=== PATIENT | female | born 1975 | race Caucasian/White ===

== ENCOUNTER → 2018-04-03 15:31 | Outpatient (CLI) | payer OTHER, SELFPAY ==
[2018-04-03 17:45] LABS: Hematocrit 38.2 % (37-47); Hemoglobin 13.1 g/dl (12.0-15.0); Mean Corp Hgb Conc 34.3 g/gl (32-36); Mean Corpuscular Volume 87.4 fL (81-99); Mean Platelet Vol. 9.3 fl (6.2-12.0); Platelet Count 321 K/mm3 (150-450); RBC Distribution Width CV 12.4 % (11.6-14.6); RBC Distribution Width SD 38.8 fl (35.1-43.9); Red Blood Count 4.37 M/mm3 (4.2-5.4); White Blood Count 6.1 K/mm3 (4.4-11.0)
[2018-04-03 18:07] LABS: ALB/GLOB Ratio 1.1 RATIO (0.9-2.4); AST(SGOT) 12 U/L (15-37); Alanine Aminotransfer ALT/SGPT 17 U/L (13-56); Albumin, Serum 3.8 g/dL (3.2-5.0); Alkaline Phosphatase 52 U/L (45-117); Anion Gap 7 (5-15); BUN 15 mg/dL (7-18); BUN/Creat Ratio 24.4 RATIO (10-20); Calcium,Total 8.7 mg/dL (8.5-10.1); Chloride 106 mmol/L (98-107); Creatinine, Serum 0.62 mg/dL (0.55-1.02); EST Glomerular Filtration Rate 113 mL/min (>60); Est Glom Filt Rate - Afr Amer 137 mL/min (>60); Globulin 3.6 g/dL (2.2-4.2); Glucose 90 mg/dL (74-106); Iron 97 ug/dL (50-170); Potassium 3.7 mmol/L (3.5-5.1); Protein, Total 7.4 g/dL (6.4-8.2); Scan Indicated on CBC? Y/N NO; Sodium Level 139 mmol/L (136-145); Thyroid Stim Hormone (TSH) 1.33 uIU/mL (0.358-3.74)
[2018-04-03 18:16] LABS: Erythrocyte Sedimentation Rate 4 mm/hr (0-20)
[2018-04-04 11:32] LABS: Vitamin B12 552 pg/mL (211-911); Vitamin D,25 Hydroxy 26.4 ng/mL (29.95-100.01)
== END ==
PROVIDERS: Family Provider Family Medicine; PCP Family Medicine; Visit Provider Family Medicine
DX: R53.83 Other fatigue (principal)
CPT/HCPCS: 36415; 80053; 82306; 82533; 82607; 83540; 84443; 85027; 85652

== ENCOUNTER → 2019-06-18 16:26 | Outpatient (CLI) | payer OTHER, SELFPAY ==
[2015-02-25 14:11] VITALS: BMI 22.2
--- NOTE | 2019-06-18 16:31 | RAD_ITS ---
STUDY: X-RAY - CERVICAL SPINE REASON FOR EXAM: Female, 43 years old. NECK PAIN AND CHRONIC headaches TECHNIQUE: 5 view(s) of the cervical spine were obtained. COMPARISON: None FINDINGS: Normal anterior atlantoaxial articulation. Normal odontoid process. Normal cervical lordosis. Normal vertebral bodies and endplates. Normal disc space heights. Normal visualized intervertebral neuroforamina. The soft tissue structures are unremarkable. There is no demonstrated fracture of the cervical spine. RAD/Cerv Spine 4 or 5 Views IMPRESSION: Normal x-ray examination of the visualized cervical spine. Electronically Signed: Ja Leyva MD at 23:57 EST , Service support ,
[2019-06-18 18:08] LABS: Hematocrit 39.2 % (37-47); Hemoglobin 13.5 g/dL (12.0-15.0); Mean Corp Hgb Conc 34.4 g/dL (32-36); Mean Corpuscular Hgb 29.9 pg (27.0-32.0); Mean Corpuscular Volume 86.9 fL (81-99); Mean Platelet Vol. 9.1 fl (6.2-12.0); Platelet Count 311 K/mm3 (150-450); RBC Distribution Width CV 12.2 % (11.6-14.6); RBC Distribution Width SD 38.9 fl (35.1-43.9); Red Blood Count 4.51 M/mm3 (4.2-5.4); White Blood Count 5.8 K/mm3 (4.4-11.0)
[2019-06-18 18:14] LABS: Erythrocyte Sedimentation Rate 4 mm/hr (0-20)
[2019-06-18 18:24] LABS: Vitamin D,25 Hydroxy 41.2 ng/mL (29.95-100.01)
[2019-06-18 19:14] LABS: ALB/GLOB Ratio 1.1 RATIO (0.9-2.4); AST(SGOT) 11 U/L (15-37); Alanine Aminotransfer ALT/SGPT 18 U/L (13-56); Albumin, Serum 3.7 g/dL (3.2-5.0); Alkaline Phosphatase 55 U/L (45-117); Anion Gap 3 (5-15); BUN 15 mg/dL (7-18); BUN/Creat Ratio 23.1 RATIO (10-20); CRP < 2.90 mg/L (0.0-3.0); Calcium,Total 9.1 mg/dL (8.5-10.1); Chloride 107 mmol/L (98-107); Creatinine, Serum 0.65 mg/dL (0.55-1.02); EST Glomerular Filtration Rate 105 mL/min (>60); Est Glom Filt Rate - Afr Amer 128 mL/min (>60); Free T3 2.6 pg/mL (2.18-3.98); Globulin 3.5 g/dL (2.2-4.2); Glucose 99 mg/dL (74-106); Magnesium 2.2 mg/dL (1.6-2.6); Potassium 3.7 mmol/L (3.5-5.1); Protein, Total 7.2 g/dL (6.4-8.2); Sodium Level 138 mmol/L (136-145); T4 Free Direct 0.86 ng/dL (0.76-1.46); Thyroid Stim Hormone (TSH) 1.44 uIU/mL (0.358-3.74)
[2019-06-20 13:52] LABS: ANTINUCLEAR ANTIBODIES DIRECT Negative (Negative)
[2019-06-27 17:04] LABS: CCP IgG Antibodies 9 units (0-19); Thyroid Peroxidase AB 10 IU/mL (0-34)
== END ==
PROVIDERS: Family Provider Family Medicine; PCP Family Medicine; Referring Provider Family Medicine; Visit Provider Family Medicine
DX: E55.9 Vitamin D deficiency, unspecified (principal); R25.2 Cramp and spasm; R53.83 Other fatigue; R51 Headache
CPT/HCPCS: 36415; 72050; 80053; 81291; 82306; 83735; 84439; 84443; 84481; 85027; 85652; 86038; 86140; 86200; 86376; 86431

== ENCOUNTER → 2019-07-01 13:38 | Outpatient (CLI) | payer OTHER, SELFPAY ==
[2019-07-01 15:26] LABS: Vitamin B12 614 pg/mL (211-911); Vitamin D,25 Hydroxy 36.5 ng/mL (29.95-100.01)
[2019-07-04 03:59] LABS: CCP IgG Antibodies 8 units (0-19); Thyroid Peroxidase AB 10 IU/mL (0-34)
== END ==
PROVIDERS: PCP Family Medicine; Referring Provider Family Medicine; Visit Provider Family Medicine
DX: E55.9 Vitamin D deficiency, unspecified (principal); R53.83 Other fatigue
CPT/HCPCS: 36415; 82306; 82607; 82746; 86200; 86376

== ENCOUNTER → 2019-07-29 13:06 | Outpatient (CLI) | payer OTHER, SELFPAY ==
--- NOTE | 2019-07-29 14:10 | CT_ITS ---
STUDY: CT BRAIN WITHOUT CONTRAST REASON FOR EXAM: Female, 43 years old. HEADACHES RADIATION DOSAGE (If Supplied By Facility): CTDIvol = ( 60.81 ) mGy, DLP = ( 1021.47 ) mGycm CLINICAL HISTORY: 43 years Female, HEADACHES COMPARISON: None. TECHNIQUE: A CT scan of the head was performed without IV contrast in the axial plane. Coronal and sagittal reconstruction images were also obtained. This exam was performed according to our departmental dose-optimization program, which includes automated exposure control, adjustment of the mA and/or kV according to patient size and/or use of iterative reconstruction technique. FINDINGS: The gillian, medulla, and cerebellum appear to be normal. The ventricles and sulci are normal in size and shape. The basal ganglia appear to be normal. The inner and outer tables of the skull are intact. The frontal, ethmoid, maxillary, and sphenoid sinuses are normal. The mastoid air cells are normal. CT/Brain/Head without Contrast IMPRESSION: Normal CT scan of the head. Electronically Signed: Tomasz Villalta, at 7:31 EST Tel , Service support ,
== END ==
PROVIDERS: PCP Family Medicine; Referring Provider Family Medicine; Visit Provider Family Medicine
DX: R51 Headache (principal)
CPT/HCPCS: 70450

== ENCOUNTER → 2019-11-04 13:30 | Outpatient (CLI) | payer OTHER, SELFPAY ==
--- NOTE | 2019-11-04 13:39 | RAD_ITS ---
STUDY: X-RAY - CERVICAL SPINE REASON FOR EXAM: Female, 44 years old. Neck pain TECHNIQUE: 5 view(s) of the cervical spine were obtained including oblique views. COMPARISON: None FINDINGS: Normal anterior atlantoaxial articulation. Normal odontoid process. Normal cervical lordosis. Normal vertebral bodies and endplates. Normal disc space heights. Normal visualized intervertebral neuroforamina. The soft tissue structures are unremarkable. RAD/Cerv Spine 4 or 5 Views IMPRESSION: Normal x-ray examination of the visualized cervical spine. Electronically Signed: Bladimir Artis, at 15:45 EDT , Service support ,
--- NOTE | 2019-11-04 13:40 | RAD_ITS ---
STUDY: X-RAY - SACROILIAC JOINTS REASON FOR EXAM: Female, 44 years old. back and hip pain TECHNIQUE: 3 view(s) of the sacroiliac joints were obtained. COMPARISON: None. FINDINGS: Normal bilateral sacroiliac joints. Normal visualized sacral ala and sacrum. There is no demonstrated fracture. Normal visualized iliac bones. Normal visualized soft tissue structures. RAD/S-I Jts 3 or More Views IMPRESSION: Normal x-ray examination of the bilateral sacroiliac joints. Electronically Signed: Nacho Baxter MD at 14:39 EDT , Service support ,
--- NOTE | 2019-11-04 13:42 | RAD_ITS ---
STUDY: X-RAY - LEFT HAND REASON FOR EXAM: Female, 44 years old. Hand pain TECHNIQUE: 3 view(s) of the hand. COMPARISON: None. FINDINGS: Normal radiocarpal articulation. Normal distal radioulnar joint. Normal visualized carpal bones. Normal carpal articulations Normal carpometacarpal articulation of the thumb. Normal second through fifth carpometacarpal joints. Normal metacarpi. Normal metacarpophalangeal joint of the thumb. Normal interphalangeal joint of the thumb. Normal proximal and distal phalanges of the thumb. Normal metacarpophalangeal joints of the second through fifth fingers. Normal proximal and distal interphalangeal joints of the second through fifth fingers. Normal phalanges of the second through fifth fingers. The soft tissue structures are unremarkable. RAD/Hand Min 3 Views IMPRESSION: Normal x-ray examination of the hand. Electronically Signed: Bladimir Artis, at 15:45 EDT , Service support ,
--- NOTE | 2019-11-04 13:42 | RAD_ITS ---
STUDY: X-RAY - RIGHT HAND REASON FOR EXAM: Female, 44 years old. Hand pain TECHNIQUE: 3 view(s) of the hand. COMPARISON: None. FINDINGS: Normal radiocarpal articulation. Normal distal radioulnar joint. Normal visualized carpal bones. Normal carpal articulations Normal carpometacarpal articulation of the thumb. Normal second through fifth carpometacarpal joints. Normal metacarpi. Normal metacarpophalangeal joint of the thumb. Normal interphalangeal joint of the thumb. Normal proximal and distal phalanges of the thumb. Normal metacarpophalangeal joints of the second through fifth fingers. Normal proximal and distal interphalangeal joints of the second through fifth fingers. Normal phalanges of the second through fifth fingers. The soft tissue structures are unremarkable. RAD/Hand Min 3 Views IMPRESSION: Normal x-ray examination of the hand. Electronically Signed: Bladimir Artis, at 15:47 EDT , Service support ,
--- NOTE | 2019-11-04 13:45 | RAD_ITS ---
STUDY: X-RAY - RIGHT WRIST REASON FOR EXAM: Female, 44 years old. Wrist pain TECHNIQUE: 3 view(s) of the wrist were obtained. COMPARISON: None. FINDINGS: Normal visualized distal radius and ulna. Normal radiocarpal articulation. Normal distal radioulnar articulation. Normal carpal bones. Normal carpal articulations. Normal carpometacarpal articulation of the thumb. Normal second through fifth carpometacarpal articulations. Normal visualized metacarpal bones. The soft tissue structures are unremarkable. RAD/Wrist min 3 Views IMPRESSION: Normal x-ray examination of the wrist. Electronically Signed: Bladimir Artis, at 15:37 EDT , Service support ,
--- NOTE | 2019-11-04 13:45 | RAD_ITS ---
STUDY: X-RAY - LEFT WRIST REASON FOR EXAM: Female, 44 years old. Wrist pain TECHNIQUE: 3 view(s) of the wrist were obtained. COMPARISON: None. FINDINGS: Normal visualized distal radius and ulna. Normal radiocarpal articulation. Normal distal radioulnar articulation. Normal carpal bones. Normal carpal articulations. Normal carpometacarpal articulation of the thumb. Normal second through fifth carpometacarpal articulations. Normal visualized metacarpal bones. The soft tissue structures are unremarkable. RAD/Wrist min 3 Views IMPRESSION: Normal x-ray examination of the wrist. Electronically Signed: Bladimir Artis, at 15:44 EDT , Service support ,
--- NOTE | 2019-11-04 13:46 | RAD_ITS ---
STUDY: X-RAY - LUMBAR SPINE REASON FOR EXAM: Female, 44 years old. Low back pain TECHNIQUE: 5 view(s) of the lumbar spine were obtained including oblique views. COMPARISON: None FINDINGS: Normal lumbar lordosis. There is no substantial scoliosis. There is a normal alignment of the vertebrae. Normal vertebral bodies and endplates. Normal disc space heights. The soft tissue structures are unremarkable. RAD/L/S Spine Min 4 Views IMPRESSION: Normal x-ray examination of the lumbar spine. Electronically Signed: Bladimir Artis, at 15:47 EDT , Service support ,
--- NOTE | 2019-11-04 13:46 | RAD_ITS ---
STUDY: X-RAY - RIGHT SHOULDER REASON FOR EXAM: Female, 44 years old. Shoulder pain TECHNIQUE: 4 view(s) of the shoulder. COMPARISON: None. FINDINGS: Normal glenohumeral articulation. There is minimal widening of the AC joint suggesting a Type I acromioclavicular joint separation. Normal acromion. Normal humeral head and visualized proximal humerus. The soft tissue structures are unremarkable. Normal visualized pulmonary apex. RAD/Shoulder min 2 Views IMPRESSION: Type I right AC joint separation. Electronically Signed: Bladimir Artis, at 15:46 EDT , Service support ,
[2019-11-04 17:56] LABS: Absolute Lymphocyte Count 1.92 X10^3/uL (0.83-4.51); Absolute Neutrophil Count 3.9 X10^3/uL (2.0-7.7); Basophil# 0.03 X10^3/uL; Basophil% 0.5 % (0-1); Eosinophil# 0.11 X10^3/uL; Eosinophils% 1.7 % (0-5); Hematocrit 40.7 % (37-47); Lymphocyte # 1.92 X10^3/ul (4.0); Lymphocyte % 30.1 % (19-41); Mean Corp Hgb Conc 34.4 g/dL (32-36); Mean Corpuscular Hgb 30.1 pg (27.0-32.0); Mean Corpuscular Volume 87.5 fL (81-99); Mean Platelet Vol. 9.2 fl (6.2-12.0); Monocyte# 0.41 X10^3/uL; Monocyte% 6.4 % (0-10); NRBC Flagged by Analyzer 0 % (0-5); Neutrophil # 3.89 X10^3/uL (2.7-7.7); Platelet Count 360 K/mm3 (150-450); RBC Distribution Width CV 12.3 % (11.6-14.6); RBC Distribution Width SD 39.8 fl (35.1-43.9); Red Blood Count 4.65 M/mm3 (4.2-5.4); White Blood Count 6.4 K/mm3 (4.4-11.0)
[2019-11-04 18:00] LABS: Vitamin B12 581 pg/mL (211-911)
[2019-11-04 18:33] LABS: AST(SGOT) 17 U/L (15-37); Alanine Aminotransfer ALT/SGPT 23 U/L (13-56); Albumin, Serum 3.8 g/dL (3.2-5.0); Alkaline Phosphatase 64 U/L (45-117); Anion Gap 6 (5-15); BUN 10 mg/dL (7-18); BUN/Creat Ratio 14.4 RATIO (10-20); CPK Total, Creatine Kinase 96 U/L (26-192); CRP < 2.90 mg/L (0.0-3.0); Calcium,Total 8.9 mg/dL (8.5-10.1); Chloride 104 mmol/L (98-107); EST Glomerular Filtration Rate 97 mL/min (>60); Est Glom Filt Rate - Afr Amer 118 mL/min (>60); Globulin 3.8 g/dL (2.2-4.2); Glucose 94 mg/dL (74-106); Potassium 3.5 mmol/L (3.5-5.1); Protein, Total 7.6 g/dL (6.4-8.2); Rheumatoid Factor < 10.0 IU/mL (<15); Sodium Level 138 mmol/L (136-145); Thyroid Stim Hormone (TSH) 1.83 uIU/mL (0.358-3.74); Uric Acid 3.6 mg/dL (2.6-6.0)
[2019-11-04 19:01] LABS: Erythrocyte Sedimentation Rate 4 mm/hr (0-20)
[2019-11-06 17:15] LABS: ANTINUCLEAR ANTIBODIES DIRECT Negative (Negative)
[2019-11-12 10:05] LABS: Albumin 3.9 g/dL (2.9-4.4); Alpha-1-Globulins 0.2 g/dL (0.0-0.4); Alpha-2-Globulins 0.6 g/dL (0.4-1.0); Angiotensin Convert Enzyme 51 U/L (14-82); Folate, RBC (Hct) Test 42.4 % (34.0-46.6); Folates, RBC Test 991 ng/mL (>498); Gamma Globulin 1.3 g/dL (0.4-1.8); HEPATITIS B SURFACE AG Negative (Negative); Hepatitis A AB, Total Positive (Negative); Hepatitis A IgM Antibody Negative (Negative); Hepatitis B Core AB IgM Negative (Negative); Hepatitis B Core Ab Total Negative (Negative); Hepatitis C Ab 0.1 s/co ratio (0.0-0.9); Immunoglobulin A 101 mg/dL (87-352); Immunoglobulin G 1220 mg/dL (586-1602); Immunoglobulin M 269 mg/dL (26-217); PROEL- TOTAL PROTEIN 6.9 g/dL (6.0-8.5); Vitamin B1, Thiamine 136.1 nmol/L (66.5-200.0)
[2019-11-12 10:11] LABS: HLA B27 Negative (.); Hep B Surface Antibodies Non Reactive (.); t-Transglutaminase IgA <2 U/mL (0-3)
[2019-11-12 10:12] LABS: CCP IgG Antibodies 6 units (0-19)
== END ==
PROVIDERS: PCP Family Medicine; Referring Provider Internal Medicine Rheumatology; Visit Provider Internal Medicine Rheumatology
DX: M54.2 Cervicalgia (principal); M54.9 Dorsalgia, unspecified; R20.2 Paresthesia of skin; G56.03 Carpal tunnel syndrome, bilateral upper limbs; M89.9 Disorder of bone, unspecified; M94.9 Disorder of cartilage, unspecified; M25.511 Pain in right shoulder; M75.21 Bicipital tendinitis, right shoulder; M75.81 Other shoulder lesions, right shoulder; M25.531 Pain in right wrist; M25.532 Pain in left wrist; M79.641 Pain in right hand; M79.642 Pain in left hand; M19.041 Primary osteoarthritis, right hand; M19.042 Primary osteoarthritis, left hand; R29.898 Other symptoms and signs involving the musculoskeletal system; M19.071 Primary osteoarthritis, right ankle and foot; M19.072 Primary osteoarthritis, left ankle and foot; R53.83 Other fatigue; E55.9 Vitamin D deficiency, unspecified
CPT/HCPCS: 36415; 72050; 72110; 72202; 73030; 73110; 73130; 80053; 81374; 82164; 82550; 82607; 82747; 82784; 83516; 84165; 84425; 84443; 84550; 85014; 85025; 85652; 86038; 86140; 86200; 86225; 86235; 86334; 86431; 86704; 86705; 86706; 86708; 86709; 86803; 87340

== ENCOUNTER 2020-02-20 16:30 | Outpatient (RCR) | payer OTHER, SELFPAY ==
--- NOTE | 2019-12-04 10:11 | HP.PTEVAL_ITS ---
Patient's Visit Information OLIVA ATKINSON is a 44 year old F referred to Physical Therapy by Dr. Reno Huitron Jr., MD with a diagnosis of R RC tendoinitis, R biceps tendonitis, shoulder pain, cervicalgia. Date of Evaluation: 12/04/19 Physical Therapist: Alejo Hurley, CATHIET, OCS, CSCS - Visit Plan Frequency: 2x /Week Duration: 4-6 Weeks Plan: 2x/week for 4-6 for. 1. STM R necka nd scap. 2. [place] progression of forces for C/s ret ext and mobs and R neck muscle stretching with postural correction. 3. cervical, postural and core strength to HEp. 4. L/S extension ROM. - Subjective Pain and fatigue and sent to rhumatologist. Seeing PT for R shoulder pain, x rays showed slight separation. Tested for RA and lupus and no positives. R neck and shoulder are the worst of her pain and R hip and LB also hurt. Seeing OT for hands. R shoulder and neck normall 2/10 constant for months to years. Did injure it years ago tubing 15 yrs ago but fully recovered. Picking up firewood makes her worse up to 5/10. Threw LB out 5 yrs ago and has been minmally irritated since then. Mostly comfortable to 1/10 in LB. Worse if shops all day. Neck hurts if sleeps wrong and gives H in morning.Otherwise sleeps through the night. Only up 1-2x/month. 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 Always worse in winter. [place] helps. Basic ADLs are getting done. Activities are pretty normal. Exercises none. - Pain R shoulder neck Pain Intensity (Out of 10): 2 Pain Intensity Range: 2, 5 R LB Pain Intensity (Out of 10): 0 Pain Intensity Range: 0, 2 - Objective Posture is forward head and protracted scap B. Sensation UE adn LE WNL to gross light touch. reflexes 2/3 bi and tri and patella and achilles. Strength shoulder and elbows symettrical and painfree as is LE strength demian t 4-/5. - H and neer tests, - ext rotation lag test R, - labral tests and Tenderness is mostly R UT, scalenes and paraspinal muscle belly vs shoulder and minmal to moderate. c/s aROM 60 ext with pain end range, rotation are fulla nd without pain but tight R musculature, SB full and more tightness R vs L. L/S AROM ext mod limtied others WNL, ext give some R LBP transiently. repeated motions neck: Ok at rest. protrusion produces R elbow and pinky tingly. and sore PDM and after. c/s retraction: no PDM except in pelvis. c/s ret/ext PDM end range with slight L deviation. Fixing posture abolishes hand and lower arm tingling 2x/today. Slight + R c/s compression - Goals Goal 1:: Full c/s AROM without pain Goal Time Frame: 4-6 Weeks Goal 2:: Pt assume and maintain appropriate posture without VC Goal Time Frame: 4-6 Weeks Goal 3:: Pt feel 90% diminished pain in shoulder and neck to 1/10 and intermittent. Goal Time Frame: 4-6 Weeks Goal 4:: I approp HEp to minimize future problems. Goal Time Frame: 4-6 Weeks - Rehabilitation Potential Physical Therapy Diagnosis: Likely cervical radiculopathy/derangement. Rehabilitation Potential: Good - Anticipated Interventions Patient/Client Instruction: Educate patient on: Condition, Plan of Care For the Purpose of:: To decrease pain, To increase ROM, To improve muscle performance and motor function, To increase tolerance to activity/condition/position, To improve ability of physical actions for home/community/work/leisure Therapeutic Exercise to Include: Strength training, Postural training, Flexibilty training, Passive ROM, Active ROM, Dynamic Lumbar Stabilization, [place] Exercises, Scapular Strength/Stabilization For the Purpose of:: To decrease pain, To increase ROM, To improve muscle performance and motor function, To increase tolerance to activity/condition/position, To improve ability of physical actions for home/community/work/leisure Manual Therapy Techniques to Include: Mobilization, Passive ROM, Soft tissue mobilization For the Purpose of:: To decrease pain, To increase ROM, To improve muscle performance and motor function, To increase tolerance to activity/condition/position Thank you for the opportunity to evaluate your patient. For Medicare and Medicare HMO plans, please review the plan of care and approve it. It will need to be FAXED BACK to us at [phone] for Medicare purposes. For Medicare only, by signing this I certify the plan of care. Please let me know if there are questions or concerns regarding this plan of care. Physician Signature: Date:
--- NOTE | 2019-12-04 14:55 | HP.OTEVAL ---
Patient's Visit Information OLIVA ATKINSON is a 44 year old F, referred to Occupational Therapy by Dr. Reno Huitron Jr., MD, with a diagnosis of hand pain/CTS. Date of Evaluation: 12/04/19 Occupational Therapist: Cindy Padgett, CHALOR/Lorna, CHT - Subjective This 44 year old female was seen for OT eval with dx of bilateral CTS. pt states she does get pian in tips of fingers, states did give her braces at night. pt states she has not had a nerve conduction test done at this time. pt states she has right LF and RF tingling and left hand has more the all over hand tingling- pt does report with arms overhead her hands fall a sleep- pt has been to chiropractor due to upper trap pain on her right side. fingers hurt with use and more in the winter. - Pain bilateral hand pain 2 Pain Intensity Range: 2, 6 - ROM ROM Comments: pt demo full functional ROM - Strength Supervisor Counseling And Guidance: right 45# left 40# Lateral Pinch: right 4# left 4# Tripod Pinch: right 8# left 10# Tip-to-Tip Pinch: right 6# left 5# - Sensation Thumb: right 2.83 left 2.83 Index: right 2.83 left 2.83 Middle: right 2.83 left 2.83 Ring: right 2.83 left 2.83 Little: right 2.83 left 2.83 - Carpal Tunnel Syndrome Total Score of Symptom & Functional Sections: 28 - Goals Goal:: pt will report no pain in bilateral hands greater than 1/10 with use of hand for ADls and IADls by d/c Goal:: pt will demo understanding of joint protection cailin. to prevent stress on finger joints with daily occupations by end of 2nd session. pt will demo understanding of posture correction cailin. by end of 2nd session. Goal:: pt will report a reduction in tingling/numb in median and Ulna nerve distribution by 80% by d/c - Rehabilitation General Assessment: pt demo with nerve compression limiting pts sleeping causing weakness and limiting daily use of her hands with ADls and IADls. pt would benefit from skilled OT services 2-3xweek for 4 weeks to assist pt to reach max. rehab potential. Today therapist ed. pt on median nerve and ulnar nerve glides, posture and use of braces for night. therapist also ed.pt on joint protection cailin and posture. therapist gave information to pt for HEP pt demo understanding and agree to POC. Rehabilitation Potential: Good - Anticipated Interventions A/AAROM/PROM, Strengthening, Orthoses, Joint Protection/Energy Conservation, Ergonomic Education - Visit Plan Frequency: 2-3x /Week Duration: 4 Weeks TEXT: Thank you for the opportunity to evaluate your patient. For Medicare and Medicare HMO plans, please review the plan of care and approve it. It will need to be FAXED BACK to us at [phone] for Medicare purposes. Please let me know if there are questions or concerns regarding this plan of care. Physician Signature: Date:
--- NOTE | 2019-12-25 11:48 | HP.OTDCSUM ---
It has been my pleasure to treat OLIVA ATKINSON under orders from Dr. Reno Huitron Jr., MD, for the diagnosis of hand pain/CTS for a total of 3 visit(s). Please see the following information for a summary of their discharge status. % Improvement: 90 Objective/Function: right computer technology instructor strength 52# a increase from 45# left 53# a increase from 45#. right lateral pinch 14# initial 4#. left 12# a increase from 4#. right tripod pinch 12# increase from 8# left 10# stayed the same. right tip pinch 12# a increase from 6# left tip pinch 8# a increase from 5# pt reports a decrease in tingling/numbness by 80% - pt to continue with PT to cont. strengthening cervical/thoracic and postural Patient Goals: Regain Strength, Decrease Pain, Decrease Swelling/Stiffness, Use Hand/Wrist/Arm Normally Again, Sleep Better, Decrease Tingling/Numbness Goal:: pt will report no pain in bilateral hands greater than 1/10 with use of hand for ADls and IADls by d/c Goal:: pt will demo understanding of joint protection cailin. to prevent stress on finger joints with daily occupations by end of 2nd session. pt will demo understanding of posture correction cailin. by end of 2nd session. Goal:: pt will report a reduction in tingling/numb in median and Ulna nerve distribution by 80% by d/c Plan: D/C Discharge Comments: pt has met goals in OT and reports tingling/numbness about 20% of her day. Pt states she could drive without her hands going numb. pt demo understanding of median/ulnar and radial nerve gildes- pt will cont. with PT to cont to strengthen cervica/thoracic and scapula/posture. pt demo understanding and agree to POC. If there are questions or concerns regarding this patient's occupational therapy, please fell free to call me at [phone]. Thank you for the referral of this patient. Sincerely, Cindy Padgett, OTR/L, CHT
--- NOTE | 2020-01-03 09:42 | HP.PTREVAL ---
Dr. Reno Huitron Jr., MD, It has been my pleasure to treat OLIVA ATKINSON over the last 6 visits for R RC tendoinitis, R biceps tendonitis, shoulder pain, cervicalgia. Please see the progress note below for an update on the physical therapy plan of care! Subjective: Hs had a bad week. Was in car a lot on Monday. Bad RILEY. Always worse in the car. Not sure why it is worse in the car. Mostly front of R shoulder. Neck has been OK lately. Pinky finger pain persists especially in car. Got appointment with Gianluca on 01/14. 11/12 pain in head. Doing HEP but not sure if it helps or not. Neck is 30% better. Shoulder is worse and more intense. RILEY frequency is worse. LB much better Walking a little for exercise Objective/Function: Progress delayed due to patient in quarantine for 2 weeks adn lack of visits. ROM c/s much better to 85 adn full rotations but still R pinch pain end ext adn R rotation. UE AROM normal and painfree. UE strength WNL and symmetrical. repeated traction necka dn supine c/s retraction adn ext off table improves shoulder and arm pain intenisty, moves neck pain centrally and improves motion. Appropriate to continue per POC and fair prognosis Plan Plan: 2x/week for 2 weeks for. 1. sTM R UT and neck. 2. manual c/s traction and supine c/s ret/ext with OP to improve shoulder and neck symptoms. 3. Postural focus but no strength posture until arm pain and shoulder pain gone, may do cervical strengthening once improved. Goals Goal 1:: Full c/s AROM without pain Goal Time Frame: 4-6 Weeks Goal Progress: Progressing Goal 2:: Pt assume and maintain appropriate posture without VC Goal Time Frame: 4-6 Weeks Goal Progress: poor Goal 3:: Pt feel 90% diminished pain in shoulder and neck to 1/10 and intermittent. Goal Time Frame: 4-6 Weeks Goal Progress: Not Progressing Goal 4:: I approp HEp to minimize future problems. Goal Time Frame: 4-6 Weeks Goal Progress: Progressing Anticipated Interventions Patient/Client Instruction: Educate patient on: Condition, Plan of Care For the Purpose of:: To decrease pain, To increase ROM, To improve muscle performance and motor function, To increase tolerance to activity/condition/position, To improve ability of physical actions for home/community/work/leisure Therapeutic Exercise to Include: Strength training, Postural training, Flexibilty training, Passive ROM, Active ROM, Dynamic Lumbar Stabilization, Jonathan Exercises, Scapular Strength/Stabilization For the Purpose of:: To decrease pain, To increase ROM, To improve muscle performance and motor function, To increase tolerance to activity/condition/position, To improve ability of physical actions for home/community/work/leisure Manual Therapy Techniques to Include: Mobilization, Passive ROM, Soft tissue mobilization For the Purpose of:: To decrease pain, To increase ROM, To improve muscle performance and motor function, To increase tolerance to activity/condition/position Please do not hesitate to contact me at [phone] by phone or if you have questions or concerns regarding this new plan of care! Sincerely, Alejo Hurley, DPT, OCS, CSCS
--- NOTE | 2020-01-13 10:50 | HP.PTREVAL_ITS ---
Dr. Reno Huitron Jr., MD, It has been my pleasure to treat OLIVA ATKINSON over the last 9 visits for R RC tendoinitis, R biceps tendonitis, shoulder pain, cervicalgia. Please see the progress note below for an update on the physical therapy plan of care! Subjective: Monday was bad. Got worse being tight adn tired as day went along. Monday and Monday both pretty good days. Was a little sore driving down on Monday but good rest of day. To doctor on Monday. R arm feels OK right now. Objective/Function: Still pain end range of ext with OP on R neck, only with OP however adn motion full in ext adn rotations. UE ROM good adn without pain. repeated ext with OP, slight increase to R neck pain. Repeated flexion:felt better in neck and pinky after flexion today. Plan Plan: trial of home flexion ex, monitor tolerance to second day of traction, Pt to doctor for other options on Monday and f/u in PT for options depending on tolerance of traction, flexiona nd doctors recommendations. Goals Goal 1:: Full c/s AROM without pain Goal Time Frame: 4-6 Weeks Goal Progress: Progressing Goal 2:: Pt assume and maintain appropriate posture without VC Goal Time Frame: 4-6 Weeks Goal Progress: Progressing Goal 3:: Pt feel 90% diminished pain in shoulder and neck to 1/10 and intermittent. Goal Time Frame: 4-6 Weeks Goal Progress: SLOW Goal 4:: I approp HEp to minimize future problems. Goal Time Frame: 4-6 Weeks Goal Progress: WORKING ON IT Anticipated Interventions Patient/Client Instruction: Educate patient on: Condition, Plan of Care For the Purpose of:: To decrease pain, To increase ROM, To improve muscle performance and motor function, To increase tolerance to activity/condition/position, To improve ability of physical actions for home/community/work/leisure Therapeutic Exercise to Include: Strength training, Postural training, Flexibilty training, Passive ROM, Active ROM, Dynamic Lumbar Stabilization, Jonathan Exercises, Scapular Strength/Stabilization For the Purpose of:: To decrease pain, To increase ROM, To improve muscle perf ormance and motor function, To increase tolerance to activity/condition/position, To improve ability of physical actions for home/community/work/leisure Manual Therapy Techniques to Include: Mobilization, Passive ROM, Soft tissue mobilization For the Purpose of:: To decrease pain, To increase ROM, To improve muscle performance and motor function, To increase tolerance to activity/condition/position Please do not hesitate to contact me at [phone] by phone or if you have questions or concerns regarding this new plan of care! Sincerely, Alejo Hurley, CATHIET, OCS, CSCS
--- NOTE | 2020-01-16 11:49 | HP.PTREVAL_ITS ---
Dr. Reno Huitron Jr., MD, It has been my pleasure to treat OLIVA ATKINSON over the last 10 visits for R RC tendoinitis, R biceps tendonitis, shoulder pain, cervicalgia. Please see the progress note below for an update on the physical therapy plan of care! Subjective: Saw orthopedist Dr. Hough and felt neck was problem and gave meds for antiinflammatory. Thought shoulder looked OK and back in 6 weeks. Pt says Monday she felt tired adn sore after traction and this has been a better week. Slight RILEY yesterday but otherwise a good week. Have had best week in about 6 weeks. Objective/Function: New script received for Gianluca for R shoulder pain and wants to continue treatment, no f/u scheduled with Rhumatologist. Will change doctor of record to Gianluca.Full c/s AROM without pain, some tightness end range ext on R UT. UE AROM fulla nd without pain today. Pt overall is much better than in the last month with RILEY and neck pain and ROM. Plan Plan: Appropriate to continue. 2x/week for 2-6 as needed for: Continue ICT, monitor home ROM for neck and ensure ROM stays full,. Start and progress postural and cervical and RC stretnght B UE with band and progress to I with pics. Goals Goal 1:: Full c/s AROM without pain Goal Time Frame: 4-6 Weeks Goal Progress: Goal Met Goal 2:: Pt assume and maintain appropriate posture without VC Goal Time Frame: 4-6 Weeks Goal Progress: Goal Met Goal 3:: Pt feel 90% diminished pain in shoulder and neck to 1/10 and intermittent. Goal Time Frame: 4-6 Weeks Goal Progress: 210, progressing, approp Goal 4:: I approp HEp to minimize future problems. Goal Time Frame: 4-6 Weeks Goal Progress: Flexion, needs strength Goal 5:: Return to wrok without increase symptoms and continuing improvement. Goal Time Frame: 4-6 Weeks Goal Progress: NEW GOAL Anticipated Interventions Patient/Client Instruction: Educate patient on: Condition, Plan of Care For the Purpose of:: To decrease pain, To increase ROM, To improve muscle performance and motor function, To increase tolerance to activity/condi tion/position, To improve ability of physical actions for home/community/work/leisure Therapeutic Exercise to Include: Strength training, Postural training, Flexibilty training, Passive ROM, Active ROM, Dynamic Lumbar Stabilization, Jonathan Exercises, Scapular Strength/Stabilization For the Purpose of:: To decrease pain, To increase ROM, To improve muscle performance and motor function, To increase tolerance to activity/condition/position, To improve ability of physical actions for home/community/work/leisure Manual Therapy Techniques to Include: Mobilization, Passive ROM, Soft tissue mobilization For the Purpose of:: To decrease pain, To increase ROM, To improve muscle performance and motor function, To increase tolerance to activity/condition/position Please do not hesitate to contact me at [phone] by phone or if you have questions or concerns regarding this new plan of care! Sincerely, Alejo Hurley, DPT, OCS, CSCS
--- NOTE | 2020-02-20 16:49 | HP.PTDCSUM ---
It has been my pleasure to treat OLIVA ATKINSON referred by Dr. Hernesto Hough DO, with the diagnosis of R RC tendoinitis, R biceps tendonitis, shoulder pain, cervicalgia for a total of 15 visit(s). Discharge Date: 02/20/20 Please see the following information for a summary of their discharge status. Subjective: Did well for first week adn a half, then low back started hurting again for no reason. Was working outside a little bit. Was hanging siding on garage. That made R shoulder/neck ouchy. Exercises have gone well. Got some vertigo after doing band exercises and sidelying ex the other day. Pain 2/10 constant in R shoulder lately,. Working again and it has not been an issue. neck does not hurt. Movement at work seems helpful. To doctor next Thrusday. R shoulder neck Pain Intensity (Out of 10): 2 R LB Pain Intensity (Out of 10): 0 % Improvement: 70 Objective/Function: Full cervical aROM with slight pain end right rotation. UE AROM fulla nd painfree. strength shoulder 4/5 without pain. Overall doing well but minor set back since last session. Still keeps chin protruded and this is likely part of the problem. Pt to see doctor in a week. Goal 1:: Full c/s AROM without pain Goal Progress: Goal Met Goal 2:: Pt assume and maintain appropriate posture without VC Goal Progress: Goal Met Goal 3:: Pt feel 90% diminished pain in shoulder and neck to 1/10 and intermittent. Goal Progress: Progressing, approp. Goal 4:: I approp HEp to minimize future problems. Goal Progress: Goal Met Goal 5:: Return to wrok without increase symptoms and continuing improvement. Goal Progress: Goal Met Plan: d/c, pt to doctor adn to [facility] HEP, may benefit from home cervical traction unit if pain persists and continues. If there are questions or concerns regarding this patient's physical therapy, please feel free to call me at [phone]. Thank you for the referral of this patient. Sincerely, Alejo Hurley, DPT, OCS, CSCS
== END 2020-02-20 19:00 | disposition home or self-care (01) ==
LOC: PT 16:30
PROVIDERS: PCP Family Medicine; Referring Provider Orthopaedic Surgery; Visit Provider Orthopaedic Surgery
DX: M54.2 Cervicalgia (principal); M54.9 Dorsalgia, unspecified; R20.2 Paresthesia of skin; G56.03 Carpal tunnel syndrome, bilateral upper limbs; M89.9 Disorder of bone, unspecified; M94.9 Disorder of cartilage, unspecified; M25.511 Pain in right shoulder; M75.21 Bicipital tendinitis, right shoulder; M75.81 Other shoulder lesions, right shoulder; M25.531 Pain in right wrist; M25.532 Pain in left wrist; M79.641 Pain in right hand; M79.642 Pain in left hand; M19.041 Primary osteoarthritis, right hand; M19.042 Primary osteoarthritis, left hand; R29.898 Other symptoms and signs involving the musculoskeletal system; M19.071 Primary osteoarthritis, right ankle and foot; M19.072 Primary osteoarthritis, left ankle and foot; R53.83 Other fatigue; E55.9 Vitamin D deficiency, unspecified
CPT/HCPCS: 97012; 97110; 97140; 97162; 97164; 97166; 97530

== ENCOUNTER 2021-05-30 21:29 | Emergency (ER) | payer OTHER, SELFPAY ==
[2021-05-30 21:29] VITALS: BP 123/71; PULSE 77; RESP 16; TEMP 36.4; O2SAT 98; BMI 22.8
--- NOTE | 2021-05-30 22:26 | EX.ED.DYSGE1 ---
HPI History of Present Illness Chief Complaint: General Illness Informant: patient Onset/Context/Timing Onset: Days (4) Context: Gradual Onset Timing: Continuous Quality: cough Current Severity: Moderate Maximum Severity: Moderate Worsened by: Exertion Relieved by: Resting Associated Symptoms Associated Symptoms: Fevers, chills, malaise Narrative Narrative: Patient 4 days now of upper respiratory symptoms with a positive home Covid test, her father has Covid and she and her family were exposed, patient mainly here because her has colon cancer is on chemotherapy and has started getting symptoms today as well and wanted to get him antibody therapy. She is vaccinated and otherwise healthy. PFSH PFS Medical History no medical history no medical history Allergy/AdvReac Type Severity Reaction Status Date / Time No Known Allergies Allergy Verified 05/30/21 21:31 Social History Smoking Status: Never smoker ROS ROS ED Constitutional Constitutional ED: Reports chills, fever(s) and malaise Eyes Eyes: Denies change in vision or diplopia ENT ENT ED: Denies rhinorrhea or sore throat Cardiovascular Cardiovascular: Denies chest pain or palpitations Respiratory/Chest Respiratory/Chest: Reports cough; Denies dyspnea Gastrointestinal Gastrointestinal: Denies abdominal pain, diarrhea, nausea or vomiting Genitourinary Genitourinary ED: Denies dysuria or hematuria Musculoskeletal Musculoskeletal: Denies back pain or neck pain Integumentary Denies abscess or rash Neurologic Neurologic: Denies headache(s), paresthesias or weakness Psychiatric Psychiatric: Denies anxiety or suicidal thoughts EXAM Physical Exam Const Vital Signs: 05/30/21 21:29 05/30/21 21:39 Temperature 97.6 F L Temperature Source Temporal Pulse Rate 77 Respiratory Rate 16 Respiratory Effort Normal Non-Labored Respiratory Pattern Normal Blood Pressure 123/71 H Blood Pressure Mean 88 Pulse Ox 98 Oxygen Delivery Method Room Air Positive well nourished and well developed Constitutional Narrative: Well-appearing in no distress General Appearance ED: well developed and NAD HEENT Reports moist mucous membranes normocephalic and atraumatic Eyes PERRL and EOMs intact bilaterally Neck full ROM and supple Resp normal respiratory effort Back/Spine General Back: other FROM Extremity normal to inspection Neuro oriented x3, CN's II-XII intact bilaterally and no sensory deficits noted Sensorium / Orientation: awake and alert Motor Exam: strength 5/5 throughout Skin no rashes or lesions noted and no wounds MDM MDM MDM Narrative Medical decision making narrative: Patient's vital signs are normal, her oxygen levels are excellent at 98% on room air. She has no risk factors for worsening disease and does not meet criteria for antibiotic therapy. Given appropriate discharge instructions for supportive care and watching her oxygen levels. Discharge Plan Triage Chief Complaint: General Illness ED Provider: Nacho Stoner Dx/Rx/DC Orders Clinical Impression: COVID-19 Instructions: Coronavirus Disease 2019 (COVID-19): Caring for Yourself or Others Primary Care Provider: Juan Le Referrals: Juan Le MD [Primary Care Provider] - As Needed Activity Restrictions/Additional Instructions: Try to get a home portable pulse oximeter and closely watch your oxygen levels periodically. If you stay below 90% for more than a minute or so, and/or you are feeling like your breathing is getting worse, return to the emergency department for further evaluation. Disposition Disposition: Home, Self Care
[2021-05-30 22:44] VITALS: RESP 18
== END 2021-05-30 22:44 | disposition home or self-care (01) ==
PROVIDERS: Emergency Provider Emergency Medicine; PCP Family Medicine
DX: U07.1 COVID-19 (principal)
CPT/HCPCS: 99282

== ENCOUNTER 2021-08-05 16:23 | Outpatient (CLI) | payer OTHER, SELFPAY ==
[2021-08-05 17:55] LABS: Absolute Lymphocyte Count 2.15 X10^3/uL (0.83-4.51); Absolute Neutrophil Count 5.7 X10^3/uL (2.0-7.7); Basophil# 0.02 X10^3/uL; Basophil% 0.2 % (0-1); Eosinophil# 0.08 X10^3/uL; Eosinophils% 0.9 % (0-5); Hematocrit 37.9 % (37-47); Hemoglobin 13.1 g/dL (12.0-15.0); Lymphocyte # 2.15 X10^3/ul (0.83-4.51); Lymphocyte % 24.4 % (19-41); Mean Corp Hgb Conc 34.6 g/dL (32-36); Mean Corpuscular Hgb 30.4 pg (27.0-32.0); Mean Corpuscular Volume 87.9 fL (81-99); Monocyte# 0.84 X10^3/uL; Monocyte% 9.5 % (0-10); NRBC Flagged by Analyzer 0 % (0-5); Neutrophil # 5.71 X10^3/uL (2.7-7.7); Neutrophil % 64.8 % (47-70); Platelet Count 328 K/mm3 (150-450); RBC Distribution Width CV 12.2 % (11.6-14.6); RBC Distribution Width SD 39.6 fl (35.1-43.9); Red Blood Count 4.31 M/mm3 (4.2-5.4); White Blood Count 8.8 K/mm3 (4.4-11.0)
[2021-08-05 18:13] LABS: ALB/GLOB Ratio 0.9 RATIO (0.9-2.4); AST(SGOT) 17 U/L (15-37); Alanine Aminotransfer ALT/SGPT 18 U/L (13-56); Albumin, Serum 3.4 g/dL (3.2-5.0); Alkaline Phosphatase 57 U/L (45-117); Amylase 49 U/L (25-115); Anion Gap 2 (5-15); BUN 13 mg/dL (7-18); BUN/Creat Ratio 18.4 RATIO (10-20); Calcium,Total 9.1 mg/dL (8.5-10.1); Chloride 108 mmol/L (98-107); Creatinine, Serum 0.71 mg/dL (0.55-1.02); EST Glomerular Filtration Rate 95 mL/min (>60); Est Glom Filt Rate - Afr Amer 114 mL/min (>60); Globulin 3.6 g/dL (2.2-4.2); Glucose 107 mg/dL (74-106); Lipase 103 U/L (73-393); Potassium 3.7 mmol/L (3.5-5.1); Sodium Level 138 mmol/L (136-145)
== END 2021-08-05 23:59 | disposition home or self-care (01) ==
LOC: MFPLAB 16:25
PROVIDERS: PCP Family Medicine; Referring Provider Family Medicine; Visit Provider Nurse Practitioner Family
DX: R10.9 Unspecified abdominal pain (principal)
CPT/HCPCS: 36415; 80053; 82150; 83690; 85025

== ENCOUNTER → 2022-03-07 | Outpatient (CLI) | payer OTHER, SELFPAY ==
--- NOTE | 2022-03-07 16:45 | RAD_ITS ---
EXAM: XR ABDOMEN, 2 VIEWS CLINICAL INDICATION: LEFT SIDE ABD PAIN TECHNIQUE: Frontal view of the abdomen/pelvis with upright view of the abdomen. This report was created using [employer] report generation technology. COMPARISON: None. FINDINGS: LOWER THORAX: No acute pathology. INTRAPERITONEAL SPACE: No free air. GASTROINTESTINAL TRACT: Unremarkable. Non-obstructive. No bowel or stomach distention. ORGANS: Unremarkable as visualized. No organomegaly. No abnormal calcifications. BONES/JOINTS: No acute pathology. SOFT TISSUES: No acute pathology. RAD/Abd Inc Decub and/or Erect IMPRESSION: Unremarkable abdominal series. Electronically Signed: Bobby Colmenares MD at 8:56 EDT ,
== END | disposition home or self-care (01) ==
PROVIDERS: PCP Family Medicine; Referring Provider Family Medicine; Visit Provider Family Medicine
DX: R10.9 Unspecified abdominal pain (principal)
CPT/HCPCS: 74019; 87086; 87088

== ENCOUNTER → 2022-03-10 | Outpatient (CLI) | payer OTHER, SELFPAY | END | disposition home or self-care (01) | LOC: MFPLAB 14:45 | PROVIDERS: PCP Family Medicine; Referring Provider Family Medicine; Visit Provider Family Medicine | DX: R10.9 Unspecified abdominal pain (principal) | CPT/HCPCS: 87086; 87088 ==

== ENCOUNTER → 2023-03-31 | Outpatient (CLI) | payer OTHER, SELFPAY ==
[2023-04-05 17:07] LABS: Age Gdln ACOG Testing 30-65 (.); HPV APTIMA, High Risk Negative (Negative)
[2023-04-07 17:54] LABS: HPV Reflexed? YES, CHARGE PATIENT
== END | disposition home or self-care (01) ==
LOC: LABSPEC 15:57
PROVIDERS: PCP Family Medicine; Referring Provider Family Medicine; Visit Provider Family Medicine
DX: Z12.4 Encounter for screening for malignant neoplasm of cervix (principal)
CPT/HCPCS: 87624; 88175; G0145

== ENCOUNTER → 2023-04-10 | Outpatient (CLI) | payer OTHER, SELFPAY ==
[2023-04-10 07:43] LABS: Cholesterol 194 mg/dL (200); Glucose 100 mg/dL (74-106); High Density Lipoprotein 77 mg/dL; Triglycerides 44 mg/dL; Very Low Density Lipoprotein 9 mg/dL (5-40)
== END | disposition home or self-care (01) ==
LOC: LAB 06:41
PROVIDERS: PCP Family Medicine; Referring Provider Family Medicine; Visit Provider Family Medicine
DX: Z01.419 Encounter for gynecological examination (general) (routine) without abnormal findings (principal); Z83.3 Family history of diabetes mellitus
CPT/HCPCS: 36415; 80061; 82947